=== PATIENT | male | born 1945 | race Hispanic/Latino ===

== ENCOUNTER 2019-01-16 08:41 | Outpatient (CLI) | payer MEDICARE ==
--- NOTE | 2019-01-16 09:26 | ULT ---
ABDOMINAL AORTIC ULTRASOUND: CLINICAL HISTORY: Abdominal aortic aneurysm screening evaluation. FINDINGS: Proximal aorta measures up to 3.4 cm in diameter, mid abdominal aorta 2.7 cm in diameter, and distal abdominal aorta 3.4 cm. There is scattered mild atherosclerotic irregularity of the aorta. IMPRESSION: Mild aneurysmal dilatation of the abdominal aorta, measuring up to 3.4 cm. Transcribed Date/Time: 01/16/2019 10:17 AM
== END 2019-01-16 08:42 | disposition home or self-care (01) ==
LOC: BICULT 08:41
PROVIDERS: ATTEND Family Medicine
DX: I71.4 Abdominal aortic aneurysm, without rupture (principal)
CPT/HCPCS: 76775

== ENCOUNTER 2020-05-04 08:06 | Outpatient (CLI) | payer MEDICARE ==
[2020-05-04 08:30] LABS: Estimated GFR-MDRD - POC Greater than 90
--- NOTE | 2020-05-04 09:28 | CT ---
EXAM: CT angiogram abdomen and pelvis with and without IV contrast and 3-D reconstruction PROVIDED CLINICAL HISTORY: Abdominal aortic aneurysm COMPARISON: 02/18/2016 FINDINGS: Atherosclerotic calcifications and areas of mild eccentric plaque are seen in the abdominal aorta and involving the iliac arteries. There is mild aneurysmal dilatation of the most distal infrarenal abdominal aorta which measures 3.1 cm. The abdominal aorta at the level of the renal arteries measure s 2.2 cm in diameter. 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 The right common iliac artery is ectatic measuring 1.[address] The celiac and superior mesenteric arteries are patent. There is at least mild narrowing at the origi n of the GALLITO. Single patent bilateral renal arteries are seen. The internal and external iliac arteries are patent. Bilateral common femoral arteries are patent. Linear bibasilar densities are seen likely attributable to bibasilar atelectasis. There is herniation of fat at the posterolateral right hemidiaphragm. There is a lobulated hypodense lesion in the posterior segment right hepatic lobe measuring approxima tely 3.1 cm. This does demonstrate fluid attenuation likely represents a bilobed cyst or 2 closely adjacent hepatic cysts. This does measure slightly larger in size compared to the prior study where m easurement of 2.5 cm was obtained. The spleen, pancreas, bilateral adrenal glands, kidneys, and partially distended urinary bladder demo nstrate a normal CT appearance for phase of imaging. There is colonic diverticulosis seen diffusely throughout the colon greater in number in the region o f the ascending colon. The descending colon extends into the right abdomen adjacent to the inferior margin of the liver prior to extending across midline to the left upper quadrant. Loops of small ritesh l are normal in caliber. The appendix is visualized and normal in caliber. Multilevel degenerative changes are seen throughout spine. Slight anterolisthesis of L4 and L5 is pre sent. Mild right convex curvature of the lumbar spine is present. There are stable thinning and irregularity of each iliac wing. This may be developmental in origin and is unchanged from prior stud y. IMPRESSION: 1. Mild aneurysmal dilatation of the most distal infrarenal abdominal aorta which measures 3.1 cm. Ma ximal measurement on the prior study was approximately 2.6 cm. 2. 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 Th e right common iliac artery is ectatic. 3. Atherosclerotic vascular calcifications and plaque seen within the abdominal aorta and involving t he iliac arteries. 4. Enlargement of a hypodense lobulated cystic lesion right hepatic lobe likely to 2 closely adjacent cysts versus a lobulated hepatic cyst. 5. Colonic diverticulosis more numerous in the region of the ascending colon.
[2020-05-04] MEDS ORDERED: Iopamidol-370 76% 500 ML 1 ML ONE (13:40)
== END 2020-05-04 08:07 | disposition home or self-care (01) ==
LOC: BICCT 08:06
PROVIDERS: ATTEND Nurse Practitioner Family
DX: I71.4 Abdominal aortic aneurysm, without rupture (principal); K57.30 Diverticulosis of large intestine without perforation or abscess without bleeding; I72.3 Aneurysm of iliac artery; I70.90 Unspecified atherosclerosis; K76.9 Liver disease, unspecified
CPT/HCPCS: 74174; 82565; Q9967

== ENCOUNTER 2021-12-30 09:45 | Outpatient (CLI) | payer MEDICARE | END 2021-12-30 09:46 | disposition home or self-care (01) | LOC: BICRAD 09:45 | PROVIDERS: ATTEND Family Medicine | DX: M54.50 Low back pain, unspecified (principal); R07.89 Other chest pain; G89.29 Other chronic pain; M51.36 Other intervertebral disc degeneration, lumbar region; M47.814 Spondylosis without myelopathy or radiculopathy, thoracic region; M47.816 Spondylosis without myelopathy or radiculopathy, lumbar region; M43.17 Spondylolisthesis, lumbosacral region | CPT/HCPCS: 71046; 72072; 72100 ==

== ENCOUNTER 2022-01-27 09:27 | Outpatient (CLI) | payer MEDICARE, OTHER | END 2022-01-27 09:28 | disposition home or self-care (01) | LOC: BICULT 09:27 | PROVIDERS: ATTEND Family Medicine | DX: I71.4 Abdominal aortic aneurysm, without rupture (principal); I72.3 Aneurysm of iliac artery | CPT/HCPCS: 76775 ==

== ENCOUNTER 2024-02-20 07:38 | Outpatient (CLI) | payer OTHER | END 2024-02-20 07:39 | disposition home or self-care (01) | LOC: ULT 07:38 | PROVIDERS: ATTEND Family Medicine | DX: I71.43 Infrarenal abdominal aortic aneurysm, without rupture (principal) | CPT/HCPCS: 76700 ==